=== PATIENT | female | born 1980 | race Hispanic/Latino ===

== ENCOUNTER 2018-01-01 05:26 | Emergency (ER) | payer OTHER ==
[2018-01-01 05:47] VITALS: BP 127/73; PULSE 69; RESP 16; TEMP 98; O2SAT 99
[2018-01-01] MEDS ORDERED: DiphenhydrAMINE 50 mg/ml Inj IV STA (05:51)
[2018-01-01] MEDS ORDERED: Sodium Chloride 0.9% 1,000 ML IV STA (05:51)
[2018-01-01] MEDS ORDERED: DiphenhydrAMINE 50 mg/ml Inj ONE (06:05)
--- NOTE | 2018-01-01 07:13 | ED PDOC ---
- ECG O2 Sat by Pulse Oximetry: 99 (RA) Pulse Ox Interpretation: Normal - Progress ED Course And Treament: Pt. feels much better. Swelling significantly improved. No rashes. No dyspnea, weakness, itching. Wants to go home. Will rx steroids, benadryl, pepcid, and epipen. Tolerated po with no issues. Medical Decision Making Medical Decision Making: Time: 0700 -- Patient endorsed to me by Dr. Kaplan, pending follow up on allergic reaction and final ER disposition. Scribe Attestation: Documented by Hari Jackson, acting as a scribe for Brian Jc MD. Provider Scribe Attestation: All medical record entries made by the Scribe were at my direction and personally dictated by me. I have reviewed the chart and agree that the record accurately reflects my personal performance of the history, physical exam, medical decision making, and the department course for this patient. I have also personally directed, reviewed, and agree with the discharge instructions and disposition. Disposition Counseled Patient/Family Regarding: Diagnosis, Need For Followup, Rx Given - Clinical Impression Clinical Impression: Allergic reaction - POA Present On Arrival: None - Disposition Referrals: [facility] [Outside] - 01/03/18 Disposition: Routine/Home Disposition Time: 09:53 Condition: STABLE Additional Instructions: Return if return of symptoms. Prescriptions: Cetirizine HCl [Zyrtec] 10 mg PO QAM #10 capsule DiphenhydrAMINE [Benadryl] 25 mg PO TID PRN 5 Days cap PRN Reason: Itching / Pruritus Epinephrine [Epipen] 0.3 mg SC ONCE PRN 1 Days auto.injct PRN Reason: Allergy Symptoms Famotidine [Pepcid] 20 mg PO Q12 #14 tab Methylprednisolone [Medrol Dosepak] 4 mg PO ASDIR #1 pkg Instructions: Allergy Skin Testing Forms: [employer] (Yoruba)
--- NOTE | 2018-01-01 07:15 | ED PDOC ---
HPI: Skin/Bite Injury Time Seen by Provider: 01/01/18 05:36 Chief Complaint (Nursing): Allergic Reaction Chief Complaint (Provider): Allergic Reaction History Per: Patient History/Exam Limitations: no limitations Onset/Duration Of Symptoms: Sudden Onset Current Symptoms Are (Timing): Still Present Additional Complaint(s): 37 year old female arrives to ED for an evaluation of possible allergic reaction. Patient states she woke up this morning with swelling to her lower lip and diffuse itchy sensation following recent ABX use for "walking pneumonia". Patient reports she completed full course and has been off ABX for 3 days when symptoms began. Patient expresses concern as she has had Hx of hives in the past. Otherwise, she denies any shortness of breath, throat pain, throat swelling or difficulty swallowing. PCP: Dr. Aristides Santoyo Past Medical History Reviewed: Historical Data, Nursing Documentation, Vital Signs Vital Signs: Last Vital Signs Temp 98.0 F 01/01/18 05:43 Pulse 69 01/01/18 05:43 Resp 16 01/01/18 05:43 BP 127/73 01/01/18 05:43 Pulse Ox 99 01/01/18 07:13 - Medical History PMH: No Chronic Diseases - Surgical History Surgical History: No Surg Hx - Family History Family History: States: Unknown Family Hx - Home Medications Home Medications: Ambulatory Orders Medication Instructions Recorded Cetirizine HCl [Zyrtec] 10 mg PO QAM #10 capsule 01/01/18 Famotidine [Pepcid] 20 mg PO Q12 #14 tab 01/01/18 Methylprednisolone [Medrol Dosepak] 4 mg PO ASDIR #1 pkg 01/01/18 - Allergies Allergies/Adverse Reactions: Allergies Allergy/AdvReac Type Severity Reaction Status Date / Time No Known Allergies Allergy Verified 01/01/18 05:46 Review of Systems ROS Statement: Except As Marked, All Systems Reviewed And Found Negative ENT: Positive for: Mouth Swelling (lower lip). Negative for: Throat Pain, Throat Swelling, Other (difficulty swallowing) Respiratory: Negative for: Shortness of Breath Skin: Positive for: Other (diffuse itchiness) Physical Exam - Reviewed Nursing Documentation Reviewed: Yes Vital Signs Reviewed: Yes - Physical Exam Appears: Positive for: Well, Non-toxic, No Acute Distress Head Exam: Positive for: ATRAUMATIC, NORMAL INSPECTION, NORMOCEPHALIC Skin: Positive for: Normal Color. Negative for: Rash Eye Exam: Positive for: Normal appearance, EOMI, PERRL ENT: Positive for: Other (lower lip edema). Negative for: Pharyngeal Erythema, Tonsillar Swelling Neck: Positive for: Normal, Supple Cardiovascular/Chest: Positive for: Regular Rate, Rhythm, Chest Non Tender Respiratory: Positive for: Normal Breath Sounds. Negative for: Decreased Breath Sounds, Wheezing, Respiratory Distress Gastrointestinal/Abdominal: Positive for: Normal Exam, Soft. 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 Negative for: Motor/Sensory Deficits, Aphasia - ECG O2 Sat by Pulse Oximetry: 99 (RA) Pulse Ox Interpretation: Normal Medical Decision Making Medical Decision Making: Initial Impression: 37 year old female with allergic reaction and angioedema. Initial Plan: * Labs * Benadryl 25mg IV * IV fluids * Pepcid 40mg IV * Solu-medrol 125mg IVP Time: 0700 --Upon provider reevaluation patient is medically stable and requires no further treatment in the ED at this time. Patient will be discharged home with Rx for Zyrtec, Pepcid, and Medrol dosepak. Counseling was provided and all questions were answered regarding diagnosis. There is agreement to discharge plan. Return if symptoms persist or worsen. Clinical Impression: Allergic Reaction Scribe Attestation: Documented by Alexa Silveira, acting as a scribe for Christoph Kaplan MD. Provider Scribe Attestation: All medical record entries made by the Scribe were at my direction and personally dictated by me. I have reviewed the chart and agree that the record accurately reflects my personal performance of the history, physical exam, medical decision making, and the department course for this patient. I have also personally directed, reviewed, and agree with the discharge instructions and disposition. Disposition - Clinical Impression Clinical Impression: Allergic reaction - Patient ED Disposition Is Patient to be Admitted: No Counseled Patient/Family Regarding: Diagnosis, Rx Given - Disposition Disposition: Routine/Home Disposition Time: 07:00 Condition: STABLE Prescriptions: Cetirizine HCl [Zyrtec] 10 mg PO QAM #10 capsule Famotidine [Pepcid] 20 mg PO Q12 #14 tab Methylprednisolone [Medrol Dosepak] 4 mg PO ASDIR #1 pkg Instructions: Allergy Skin Testing Forms: [employer] (Pakistani)
== END 2018-01-01 10:05 | disposition home or self-care (01) ==
LOC: H.ER 05:26
DX: T78.3XXA Angioneurotic edema, initial encounter (principal); T78.40XA Allergy, unspecified, initial encounter
CPT/HCPCS: 81025; 96374; 99284; J1200; J2930; J7030